=== PATIENT | male | born 1990 | race Asian ===

== ENCOUNTER 2021-07-11 18:41 | Emergency (ER) | payer BC, OTHER ==
[~2021-07-11] VITALS: Ht 167.6 cm; Wt 59.0 kg
[2021-07-12 01:12] VITALS: BP 152/82
[2021-07-12] MEDS ORDERED: LIDOCAINE 1% HCL (LOCAL ANESTH.) INJ 20ML MDV IJ ONE (04:00)
[2021-07-12] MEDS ORDERED: LIDOCAINE 1%HCL (LOCAL ANESTH) 10 ML MDV ONE (04:01)
[2021-07-12] MEDS ORDERED: CLIN300C8 PO (04:18)
[2021-07-12] MEDS ORDERED: CEPH-509 PO (04:18)
[2021-07-12] MEDS ORDERED: IBU600T PO (04:19)
== END 2021-07-12 04:29 | disposition home or self-care (01) ==
LOC: ER 18:45
DX: S90.112A Contusion of left great toe without damage to nail, initial encounter (principal); L03.032 Cellulitis of left toe; X58.XXXA Exposure to other specified factors, initial encounter; Y93.89 Activity, other specified; Y92.89 Other specified places as the place of occurrence of the external cause; Y99.8 Other external cause status
CPT/HCPCS: 73620; 99283; J2001

== ENCOUNTER 2022-02-04 18:12 | Emergency (ER) | payer BC ==
[~2022-02-04] VITALS: Ht 154.9 cm; Wt 66.0 kg
[~2022-02-04 18:12] MED LIST: CEPH-509 PO; CLIN300C8 PO; IBU600T PO
[2022-02-04] MEDS ORDERED: BACITRACIN TOP OINT 1 UD PKG TOP ONE (22:45)
[2022-02-04] MEDS ORDERED: CEPH-322 PO (23:28)
[2022-02-05 01:49] VITALS: BP 122/76
== END 2022-02-05 01:54 | disposition home or self-care (01) ==
LOC: ER 18:12
DX: S91.302A Unspecified open wound, left foot, initial encounter (principal); L08.9 Local infection of the skin and subcutaneous tissue, unspecified; Z79.1 Long term (current) use of non-steroidal anti-inflammatories (NSAID); Z79.2 Long term (current) use of antibiotics; X58.XXXA Exposure to other specified factors, initial encounter; Y93.89 Activity, other specified; Y92.89 Other specified places as the place of occurrence of the external cause; Y99.8 Other external cause status